=== PATIENT | female | born 1990 | race Caucasian/White ===

== ENCOUNTER 2017-11-05 13:59 | Outpatient (CLI) | payer BC ==
--- NOTE | 2017-11-05 21:29 | RAD ---
RIGHT HAND THREE VIEWS 11/05/17 No fracture or joint abnormality was seen. The index finger appears normal. The wrist appears normal. IMPRESSION: No acute finding. POS: HOME
== END 2017-11-05 14:00 | disposition home or self-care (01) ==
LOC: BURRAD 13:59
PROVIDERS: ATTEND Family Medicine
DX: M79.641 Pain in right hand (principal)